=== PATIENT | male | born 1995 | race Caucasian/White ===

== ENCOUNTER 2016-12-25 22:29 | Emergency (ER) | payer OTHER ==
[2016-12-25 22:33] VITALS: BP 133/84; PULSE 94; RESP 18; TEMP 98.6; O2SAT 97
--- NOTE | 2016-12-25 23:41 | EDPHY ---
H & P Stated Complaint: CHIN LACERATION DURING HOCKEY GAME @ 2129 Source: Patient Exam Limitations: No limitations - Personal History Current Tetanus/Diphtheria Vaccine: Yes Current Tetanus Diphtheria and Acellular Pertussis (TDAP): Yes Tetanus Vaccine Date: 2015 - Medical/Surgical History Hx Asthma: No Hx Chronic Respiratory Disease: No Hx Diabetes: No Hx Cardiac Disease: No Hx Renal Disease: No Hx Cirrhosis: No Hx Alcoholism: No Hx HIV/AIDS: No Hx Splenectomy or Spleen Trauma: No Other PMH: R Collar bone fx. - Social History Smoking Status: Never smoked HPI/ROS: CHIEF COMPLAINT: Chin laceration, hockey injury HISTORY OF PRESENT ILLNESS: Patient reports chin laceration while playing hockey 1 hour prior to arrival. He was skating when someone checked him and struck him in the chin with a shoulder. No direct trauma from a stick. No head strike or loss of conscious. Minimally painful but he did sustain a laceration. It was moderately bleeding. This was stopped with pressure and Steri-Strips applied by his senior technical trainer. No headache. No nausea or vomiting. No visual changes. No malocclusion of the teeth. No mandibular or dental pain. No difficulty opening closing his mouth. No trauma or pain elsewhere. No other associated complaints or modifying factors. Tetanus is up-to-date REVIEW OF SYSTEMS: Ten systems reviewed and are negative unless otherwise noted in the HPI PCP: None locally. SPECIALISTS: None PAST MEDICAL HISTORY: None PAST SURGICAL HISTORY: Orthopedic surgeries SOCIAL HISTORY: Nonsmoker. Is a student at [employer] in [employer] for [employer] FAMILY HISTORY: Noncontributory EXAMINATION General Appearance: Alert, no distress Head: normocephalic, atraumatic. No hematoma. No Mcallister sign. No raccoon eyes Eyes: Pupils equal and round, no conjunctival pallor or injection ENT, Mouth: Mucous membranes moist. Airway widely patent. No trismus. Chin laceration as noted below. Neck: Normal inspection, supple, non-tender. Painless range of motion all planes Respiratory: No retractions or distress Cardiovascular: Regular rate. Symmetric radial and DP pulses. Neurological: GCS 15. A&O, nonfocal, normal gait. Strength symmetric in all 4 limbs. Cranial nerves 2-12 grossly intact. Skin: Warm and dry, no rash 2.5 cm laceration on the chin, just left of midline. No exposure of the fascia or muscle. No foreign body. Extremities: Nontender, no pedal edema Psychiatric: Mood and affect normal DIFFERENTIAL DIAGNOSES: Including but not limited to laceration, laceration complication, laceration with foreign body MDM: 11:05 p.m. Laceration to the chin, just left of midline. This is approximately 2.5 cm in length. There is no exposure of the underlying fascia or muscle. Normal dentition and occlusion. No trismus. No evidence of intracranial injury. No evidence for CT scan of the head based on Satin CT head rules. Laceration has been at anesthetized. Proceed with irrigation closure. 11:40 p.m. Laceration to the left side of the chin that has been closed. This was done without complication. No foreign body. Neurovascular intact. Tetanus is up-to -date prior to arrival. Wound care discussed. Follow up here in 7 days for suture removal. We discussed wound care. He is discharged home stable condition PROCEDURE: Laceration repair Consent: Verbal Location: Chin Length of repair: 2.5 cm Complexity: Simple Layer involvement: Single Anesthesia: Local. 1% lidocaine plain. 5 mL Irrigation: Extensive Debridement: None Procedure description: Following good anesthesia, the wound was copiously irrigated. Wound bed was explored and there is no foreign body noted. No exposure of the underlying fascia or muscle body. Wound borders were approximated well with good hemostasis. Tolerated well without complication. Suture/Staple material: 6-0 Prolene, 5 simple interrupted sutures Wound care: Routine as discussed Suture/Staple removal: 7 days (Jaylan Esquivel) PHYSICIAN DOCUMENTATION: The patient was evaluated and managed by the Physician Rail Transit Operator. My co- signature indicates that I have reviewed this chart and I agree with the findings and plan of care as documented. I am the secondary supervising physician. (Vicki Figueroa) Constitutional: Initial Vital Signs Temperature (C) 37.0 C 12/25/16 22:31 Heart Rate 94 12/25/16 22:31 Respiratory Rate 18 12/25/16 22:31 Blood Pressure 133/84 H 12/25/16 22:31 O2 Sat (%) 97 12/25/16 22:31 O2 Delivery Mode Room Air Allergies/Adverse Reactions: No Known Allergies Allergy (Unverified 01/05/16 18:28) Home Medications: Medication Instructions Recorded NK [No Known Home Meds] 01/05/16 Departure - Departure Disposition: Home, Routine, Self-Care Clinical Impression: Laceration of chin without complication Qualifiers: Encounter type: initial encounter Qualified Code(s): S01.81XA - Laceration without foreign body of other part of head, initial encounter Condition: Good Instructions: Care For Your Stitches (ED), Laceration (ED) Additional Instructions: 1. Daily wound care as discussed 2. ED precautions for signs of infection as discussed 3. Return here in 7 days for suture removal Referrals: NONE *PRIMARY CARE P,. [Primary Care Provider] - As per Instructions Nigel Peters MD [Medical Doctor] - As per Instructions Physician,Emergency Dept, [Medical Doctor] - As per Instructions
== END 2016-12-25 23:49 | disposition home or self-care (01) ==
PROC: 0HQ1XZZ Repair Face Skin, External Approach (ICD-10-PCS; principal; 2016-12-25)
DX: S01.81XA Laceration without foreign body of other part of head, initial encounter (principal); W21.211A Struck by field hockey stick, initial encounter; Y99.8 Other external cause status; Y93.65 Activity, lacrosse and field hockey